=== PATIENT | female | born 1955 | race Two or more races ===

== ENCOUNTER 2016-10-22 07:09 | Day surgery (SDC) | payer BC ==
[2016-10-09 11:18] VITALS: BP 158/73
[~2016-10-22] VITALS: Ht 160 cm; Wt 71.0 kg
[~2016-10-22 07:09] MED LIST: CLON2TAB PO; DILT240T PO; DULO60CA7 PO; ESTR1PAT49 TD; GLIM4TAB2 PO; LOSA1TAB12 PO; METF10002 PO
[2016-10-22] MEDS ORDERED: LACTATED RINGERS 1,000 ML IV SCH (07:41)
[2016-10-22] MEDS ORDERED: LIDOCAINE 1%, 2ML SQ PRN (08:00)
[2016-10-22] MEDS ORDERED: FENTANYL PF 100 MCG/2ML ONE (08:40)
[2016-10-22] MEDS ORDERED: MIDAZOLAM 1 MG/ML, 2ML ONE (08:40)
[2016-10-22] MEDS ORDERED: MIDAZOLAM 1 MG/ML, 2ML IV PRN (09:00)
[2016-10-22] MEDS ORDERED: ACETAMINOPHEN 325 MG TABLET PO PRN (09:00)
[2016-10-22] MEDS ORDERED: HYDROmorphone 1 MG/ML, 1ML IV PRN (09:00)
[2016-10-22] MEDS ORDERED: ONDANSETRON 2MG/ML, 2ML IVPush PRN (09:00)
[2016-10-22] MEDS ORDERED: LABETALOL 20 MG/4 ML IV PRN (09:00)
[2016-10-22] MEDS ORDERED: ALBUTEROL SULFATE 2.5 MG/3 ML NPPB PRN (09:00)
[2016-10-22] MEDS ORDERED: MEPERIDINE/PF 25MG/0.5ML IVPush PRN (09:00)
[2016-10-22] MEDS ORDERED: hydrALAzine 20 MG/ML, 1ML IV PRN (09:00)
[2016-10-22] MEDS ORDERED: PROMETHAZINE 25 MG/ML, 1ML IV PRN (09:00)
[2016-10-22] MEDS ORDERED: FENTANYL PF 100 MCG/2ML IV PRN (09:00)
[2016-10-22] MEDS ORDERED: OXYcodone 5 MG/5 ML ORAL.SOL UDC PO PRN (09:00)
[2016-10-22] MEDS ORDERED: BUPIVACAINE/PF-EPI 0.25% 1:200K IM ONE (09:26)
[2016-10-22] MEDS ORDERED: OXYcodone 5 MG/5 ML ORAL.SOL UDC ONE (10:36)
[2016-10-22] MEDS ORDERED: ACETAMINOPHEN 325 MG TABLET ONE (10:37)
[2016-10-22] MEDS ORDERED: ACETAMINOPHEN 650 MG/20.3 ML UDC ONE (10:38)
[2016-10-22] MEDS ORDERED: ONDANSETRON 2MG/ML, 2ML ONE (15:50)
[2016-10-22] MEDS ORDERED: DEXAMETHASONE 4 MG/ML, 1ML ONE (15:50)
[2016-10-22] MEDS ORDERED: CEFAZOLIN 1,000 MG ONE (15:50)
[2016-10-22] MEDS ORDERED: KETOROLAC 30 MG/1 ML ONE (15:50)
[2016-10-22] MEDS ORDERED: PROPOFOL 10 MG/ML, 20ML ONE (15:50)
[2016-10-22] MEDS ORDERED: SUCCINYLCHOLINE 20 MG/ML, 10ML ONE (15:50)
== END 2016-10-22 12:07 | disposition home or self-care (01) ==
LOC: OUT 07:09
PROVIDERS: ATTEND Surgery
DX: N60.91 Unspecified benign mammary dysplasia of right breast (principal); I10 Essential (primary) hypertension; E11.9 Type 2 diabetes mellitus without complications; Z90.710 Acquired absence of both cervix and uterus; Z72.89 Other problems related to lifestyle; Z82.49 Family history of ischemic heart disease and other diseases of the circulatory system
CPT/HCPCS: 19120; 82962; 88307; J0330; J0690; J1100; J1885; J2250; J2405; J2704; J3010; J3490; J7120

== ENCOUNTER 2019-10-03 19:35 | Emergency (ER) | payer BC ==
[~2019-10-03] VITALS: Ht 160 cm; Wt 66.3 kg
[~2019-10-03 19:35] MED LIST changes: -GLIM4TAB2 PO; +GLIM4TAB8 PO
--- NOTE | 2019-10-03 19:54 | NUR ---
Pt roomed, all vitals signs and hide puller placed on pt.
[2019-10-03] MEDS ORDERED: DILT240C61 PO (20:06)
[2019-10-03] MEDS ORDERED: NIFE-7 PO (20:06)
[2019-10-03] MEDS ORDERED: GLIM4TAB8 PO (20:06)
--- NOTE | 2019-10-03 20:19 | NUR ---
TECH AT BEDSIDE FOR EKG. VSS.
--- NOTE | 2019-10-03 20:22 | NUR ---
EKG DONE BY EFREN
[2019-10-03 20:32] LABS: BASOPHILS # (AUTO) 0.06 x10^3/uL (0-0.1); BASOPHILS % (AUTO) 1 % (0-1); EOSINOPHILS # (AUTO) 0.09 x10^3/uL (0-0.4); EOSINOPHILS % (AUTO) 1 % (1-7); LYMPHOCYTES % (AUTO) 29 % (22-44); MD NO; MEAN CORPUSCULAR HEMOGLOBIN 30.1 pg (27.0-34.8); MEAN CORPUSCULAR HGB CONC 33.4 g/dL (32.4-35.8); MEAN CORPUSCULAR VOLUME 90.2 fL (80-100); MEAN PLATELET VOLUME 9.1 fL (7.4-10.4); MONOCYTES # (AUTO) 0.51 x10^3/uL (0.2-0.8); MONOCYTES % (AUTO) 7 % (2-9); NEUTROPHILS # (AUTO) 4.53 x10^3/uL (1.8-6.8); NEUTROPHILS % (AUTO) 62 % (42-75); PLATELET COUNT 371 x10^3/uL (130-400); RED BLOOD COUNT 4.94 x10^6/uL (3.82-5.3); RED CELL DISTRIBUTION WIDTH 12.9 % (9.6-15.2)
--- NOTE | 2019-10-03 20:41 | NUR ---
RESTING ON EDINSON, RAJANI AT BEDSIDE. VSS. PLACED CALL LIGHT WITHIN REACH.
[2019-10-03 20:43] VITALS: BP 146/64
[2019-10-03 20:43] LABS: ALANINE AMINOTRANSFERASE 23 U/L (12-78); ALBUMIN 4.2 g/dL (3.4-5.0); ANION GAP 7 mmol/L (5-15); CALCIUM 9.3 mg/dL (8.5-10.1); CHLORIDE 96 mmol/L (98-107); CREATININE 0.82 mg/dL (0.55-1.02)
[2019-10-03 20:47] LABS: ALKALINE PHOSPHATASE 98 U/L (45-117); BILIRUBIN,TOTAL 0.1 mg/dL (0.2-1.0); TOTAL PROTEIN 8.3 g/dL (6.4-8.2)
--- NOTE | 2019-10-03 21:05 | NUR ---
TASK RN: DC EDUCATION PROVIDED, PT DEMONSTRATES UNDERSTANDING. PT AMBULATED STEADILY TO DC WITH RN AND SO. SO TO TRANSPORT PT HOME
== END 2019-10-03 21:11 | disposition home or self-care (01) ==
LOC: ED 20:02
DX: R60.0 Localized edema (principal); E11.65 Type 2 diabetes mellitus with hyperglycemia; I10 Essential (primary) hypertension
CPT/HCPCS: 36415; 71045; 80053; 83880; 85025; 93005; 93970; 99285